=== PATIENT | male | born 1995 | race Caucasian/White ===

== ENCOUNTER → 2016-12-08 | Emergency (ER) | payer SELFPAY ==
[~2016-12-08] MED LIST: DEXAMETHASONE 4 MG TABLET (FP) PO ONE; DEXAMETHASONE SOD PHOSPHATE 10 MG/1 ML VIAL ONE
--- NOTE | 2016-12-08 06:56 | PDOC ---
History of Present Illness - General Stated Complaint: ALLERGIES Time Seen by Provider: 12/08/16 06:55 History Source: Patient, Family Exam Limitations: No Limitations - History of Present Illness Initial Comments: 12/08/16 07:01 The patient is a 21-year-old male with a significant past medical history of seasonal ALLERGIES, who presents to the emergency department with several weeks of "itchy eyes," sneezing, "scratchy throat," dry cough and runny nose. He states that he has had these symptoms every year for the past several years, and has never seen an sales support advisor. He denies fever, chills, sweats. He denies wheeze, dyspnea. He denies rash. He has taken occasional Claritin, but not on a daily basis. Past History - Past Medical History Allergies/Adverse Reactions: Allergies Allergy/AdvReac Type Severity Reaction Status Date / Time No Known Allergies Allergy Verified 12/08/16 06:57 Home Medications: Ambulatory Orders Fluticasone Prop 0.05% Nasal [Flonase] 1 - 2 spray NS DAILY #1 spray.pump Loratadine [Claritin -] 10 mg PO DAILY #30 tablet 12/08/16 Review of Systems - Review of Systems Comments:: 12/08/16 07:03 CONSTITUTIONAL: Absent: fever, chills, diaphoresis, generalized weakness, malaise, loss of appetite HEENT: Present: See history of present illness Absent: throat pain, throat swelling, difficulty swallowing, mouth swelling, ear pain, eye pain, visual Changes CARDIOVASCULAR: Absent: chest pain, loss of consciousness, palpitations, irregular heart rate, peripheral edema RESPIRATORY: Present: See history of present illness Absent: shortness of breath, dyspnea with exertion, orthopnea, wheezing, stridor , hemoptysis GASTROINTESTINAL: Absent: abdominal pain, abdominal distension, nausea, vomiting, diarrhea, constipation, melena, hematochezia GENITOURINARY: Absent: dysuria, frequency, urgency, hesitancy, hematuria, flank pain, genital pain MUSCULOSKELETAL: Absent: myalgia, arthralgia, joint swelling SKIN: Absent: rash, itching, pallor HEMATOLOGIC/IMMUNOLOGIC: Absent: easy bleeding, easy bruising, lymphadenopathy, frequent infections ENDOCRINE: Absent: unexplained weight gain, unexplained weight loss, heat intolerance, cold intolerance NEUROLOGIC: Absent: headache, focal weakness or paresthesias, dizziness, unsteady gait, seizure, mental status changes, bladder or bowel incontinence PSYCHIATRIC: Absent: anxiety, depression, suicidal or homicidal ideation, hallucinations. *Physical Exam - Physical Exam Comments: 12/08/16 07:03 GENERAL: Well developed, well nourished. Awake and alert. No acute distress. HEENT: Mild bilateral conjunctival injection. Normocephalic, atraumatic. PERRLA, EOMI. No conjunctival pallor. Sclera are non- icteric. Moist mucous membranes. Oropharynx is clear. NECK: Supple. Full ROM. No JVD. Carotid pulses 2+ and symmetric, without bruits. No thyromegaly. No lymphadenopathy. CARDIOVASCULAR: Regular rate and rhythm. No murmurs, rubs, or gallops. Distal pulses are 2+ and symmetric. PULMONARY: No evidence of respiratory distress. Lungs clear to auscultation bilaterally. No wheezing, rales or rhonchi. ABDOMINAL: Soft. Non-tender. Non-distended. No rebound or guarding. No organomegaly. Normoactive bowel sounds. MUSCULOSKELETAL Normal range of motion at all joints. No bony deformities or tenderness. No CVA tenderness. EXTREMITIES: No cyanosis. No clubbing. No edema. No calf tenderness. SKIN: Warm and dry. Normal capillary refill. No rashes. No jaundice. NEUROLOGICAL: Alert, awake, appropriate. Cranial nerves 2-12 intact. No deficits to light touch and temperature in face, upper extremities and lower extremities. No motor deficits in the in face, upper extremities and lower extremities. Normoreflexic in the upper and lower extremities. Normal speech. Toes are down- going bilaterally. Gait is normal without ataxia. PSYCHIATRIC: Cooperative. Good eye contact. Appropriate mood and affect. Medical Decision Making - Medical Decision Making 12/08/16 07:03 The patient is well-appearing and in no acute distress His clinical presentation is consistent with seasonal ALLERGIC rhinitis Clinical impression: Seasonal ALLERGIC rhinitis I discussed the physical exam findings, ancillary test results and final diagnoses with the patient. I answered all of the patient's questions. The patient was satisfied with the care received and felt comfortable with the discharge plan and treatment plan. The patient will call their primary care physician within 24 hours to arrange follow-up and will return to the Emergency Department with any new, persistent or worsening symptoms. *DC/Admit/Observation/Transfer Diagnosis at time of Disposition: Seasonal rhinitis - Discharge Dispostion Disposition: HOME Condition at time of disposition: Stable - Prescriptions Prescriptions: Loratadine [Claritin -] 10 mg PO DAILY #30 tablet Fluticasone Prop 0.05% Nasal [Flonase] 1 - 2 spray NS DAILY #1 spray.pump - Referrals Referrals: Seb Trivedi MD [Staff Physician] - Call tomorrow - Patient Instructions Printed Discharge Instructions: Allergic Rhinitis Additional Instructions: Return to the emergency department immediately with ANY new, persistent or worsening symptoms. You MUST call and follow up with your doctor tomorrow. Please make sure your doctor reviews the results of your emergency department evaluation. - Post Discharge Activity Work/School Note: Back to Work
[2016-12-08 06:59] VITALS: BP 124/74; PULSE 75; TEMP 98.2
== END | disposition home or self-care (01) ==
LOC: JER 06:40
DX: J30.2 Other seasonal allergic rhinitis (principal)
CPT/HCPCS: 99281-25

== ENCOUNTER 2017-05-25 18:07 | Emergency (ER) | payer OTHER ==
[2017-05-25 18:22] VITALS: BP 128/77; PULSE 91; TEMP 99.1; BMI 27.4
--- NOTE | 2017-05-25 19:40 | PDOC ---
History of Present Illness - General Chief Complaint: Headache Stated Complaint: HEADACHE Time Seen by Provider: 05/25/17 18:52 History Source: Patient Exam Limitations: No Limitations - History of Present Illness Initial Comments: 05/25/17 19:28 22 yr male with c/o headache for a few months. Pt states he has had them before , frontal radiates to the top of head. no head injury no fever no sick contacts. Pt states she used to wear eyeglasses as a child and teen however he has no glasses now, has not had eyes examined. Severity: Yes: mild Past History - Past Medical History Allergies/Adverse Reactions: Allergies Allergy/AdvReac Type Severity Reaction Status Date / Time No Known Allergies Allergy Verified 05/25/17 18:19 Home Medications: Ambulatory Orders NK [No Known Home Medication] 05/25/17 Other medical history: DENIES. - Surgical History Abdominal Surgery: Yes (TESTICULAR) - Suicide/Smoking/Psychosocial Hx Smoking History: Never smoked Have you smoked in the past 12 months: No Hx Alcohol Use: No Drug/Substance Use Hx: No Neuro Specific PMHX - Complaint Specific PMHX Glaucoma: No Herniated Disk: No Laminectomy: No Migraine: No Multiple Sclerosis: No Neuropathy: No TIA: No Review of Systems - Review of Systems Able to Perform ROS?: Yes Is the patient limited Latvian proficient: Yes Constitutional: No: Symptoms Reported HEENTM: No: Symptoms Reported Respiratory: No: Symptoms reported Cardiac (ROS): No: Symptoms Reported ABD/GI: No: Symptoms Reported : No: Symptoms Reported Musculoskeletal: No: Symptoms Reported Integumentary: No: Symptoms Reported Neurological: Yes: Symptoms reported, Headache *Physical Exam - Vital Signs Last Vital Signs Temp Pulse Resp BP Pulse Ox 99.1 F 91 H 19 128/77 97 05/25/17 18:19 05/25/17 18:19 05/25/17 18:19 05/25/17 18:19 05/25/17 18:19 - Physical Exam General Appearance: Yes: Nourished, Appropriately Dressed HEENT: positive: EOMI, NERISSA, Normal ENT Inspection, TMs Normal, Pharynx Normal Neck: positive: Supple. negative: Tender Respiratory/Chest: positive: Lungs Clear, Normal Breath Sounds. negative: Chest Tender Cardiovascular: positive: Regular Rhythm, Regular Rate Gastrointestinal/Abdominal: positive: Normal Bowel Sounds, Soft Musculoskeletal: positive: Normal Inspection Extremity: positive: Normal Capillary Refill, Normal Inspection, Normal Range of Motion Integumentary: positive: Normal Color, Dry, Warm Neurologic: positive: caster operator II-XII NML intact, Fully Oriented, Alert, Normal Mood/ Affect, Normal Response, Motor Strength 5/5, Other (steady gait ). 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 stable vitals no acute distress ambulatory steady gait 05/25/17 19:52 *DC/Admit/Observation/Transfer Diagnosis at time of Disposition: Headache Qualifiers: Headache type: tension-type Headache chronicity pattern: acute headache Intractability: not intractable Qualified Code(s): G44.209 - Tension-type headache, unspecified, not intractable; G44.209 - Tension-type headache, unspecified, not intractable - Discharge Dispostion Disposition: HOME Condition at time of disposition: Improved - Referrals Referrals: Noah Mcgregor MD [Staff Physician] - - Patient Instructions Additional Instructions: follow up with the neurologist for further evaluation if your headaches continue also get your eyes checked by an technical laboratory asst take Excedrin migraine as directed (over the counter) avoid any texting, video games, if your headache continues
== END 2017-05-25 19:55 | disposition home or self-care (01) ==
LOC: JERFT 18:07
DX: G44.209 Tension-type headache, unspecified, not intractable (principal)
CPT/HCPCS: 70450-TC; 99281-25

== ENCOUNTER 2017-09-18 18:33 | Emergency (ER) | payer OTHER ==
[2017-09-18 18:41] VITALS: BP 138/80; PULSE 76; TEMP 97.5; BMI 28.1
--- NOTE | 2017-09-18 19:49 | PDOC ---
History of Present Illness - General Chief Complaint: Pain, Acute Stated Complaint: STOMACH PAIN/ FATIGUE Time Seen by Provider: 09/18/17 19:23 History Source: Patient - History of Present Illness Initial Comments: 09/18/17 20:46 22 year old male with epigastric pain, burning in nature with occasional belching x 2 weeks. patient reports eating "spicy foods " lately. + nausea denies vomiting, diarrhea, constipation, lower abdominal pain, testicular painb / urinary symptoms. , PmHX: undescended testis repair as an infant Past History - Past Medical History Allergies/Adverse Reactions: Allergies Allergy/AdvReac Type Severity Reaction Status Date / Time No Known Allergies Allergy Verified 09/18/17 18:42 Home Medications: Ambulatory Orders Famotidine [Pepcid] 40 mg PO DAILY #14 tablet 09/18/17 Mag Hydrox/Al Hydrox/Simeth [Mylanta Suspension -] 30 ml PO Q6H PRN #1 bottle COPD: No Other medical history: Patient denies medical hx - Surgical History Abdominal Surgery: Yes (TESTICULAR) - Suicide/Smoking/Psychosocial Hx Smoking History: Never smoked Have you smoked in the past 12 months: No Hx Alcohol Use: No Drug/Substance Use Hx: No Review of Systems - Review of Systems Able to Perform ROS?: Yes Is the patient limited Angolan proficient: No Constitutional: No: Symptoms Reported, See HPI, Chills, Diaphoresis, Fever, Loss of Appetite, Malaise, Night Sweats, Weakness, Weight Stable, Unintentional Wgt. Loss, Unexplained wgt Loss, Other HEENTM: No: Symptoms Reported, See HPI, Eye Pain, Blurred Vision, Tearing, Recent change in vision, Double Vision, Cataracts, Ear Pain, Ocular Prothesis, Ear Discharge, Nose Pain, Nose Congestion, Tinnitus, Nose Bleeding, Hearing Loss , Throat Pain, Throat Swelling, Mouth Pain, Dental Problems, Difficulty Swallowing, Mouth Swelling, Other ABD/GI: Yes: Nausea, Abdominal cramping (epigastric). No: Symptoms Reported, See HPI, Abdominal Distended, Abd. Pain w/ defecation, Blood Streaked Bowels, Constipated, Diarrhea, Difficulty Swallowing, Poor Appetite, Poor Fluid Intake, Rectal Bleeding, Vomiting, Indigestion, Tarry Stools, Other : No: Symptoms Reported, See HPI, Burning, Dysuria, Discharge, Frequency, Flank Pain, Hematuria, Incontinence, Pain, Urgency, Testicular Mass, Testicular Swelling, Lesions, Testicular Pain, Other Neurological: No: Symptoms reported, See HPI, Headache, Numbness, Paresthesia, Pre-Existing Deficit, Seizure, Tingling, Tremors, Weakness, Unsteady Gait, Ataxia, Dizziness, Other *Physical Exam - Vital Signs Last Vital Signs Temp Pulse Resp BP Pulse Ox 97.5 F L 76 18 138/80 96 09/18/17 18:39 09/18/17 18:39 09/18/17 18:39 09/18/17 18:39 09/18/17 18:39 - Physical Exam General Appearance: Yes: Appropriately Dressed Respiratory/Chest: positive: Lungs Clear, Normal Breath Sounds Cardiovascular: positive: Regular Rhythm, Regular Rate Gastrointestinal/Abdominal: positive: Normal Bowel Sounds, Soft Musculoskeletal: positive: Normal Inspection Extremity: positive: Normal Capillary Refill, Normal Inspection, Normal Range of Motion Integumentary: positive: Normal Color, Dry, Warm Neurologic: positive: Fully Oriented, Alert, Normal Mood/Affect ED Treatment Course - LABORATORY CBC & Chemistry Diagram: 09/18/17 20:00 09/18/17 20:00 Progress Note - Progress Note Progress Note: A: Gastritis; GERD P: pepcid; zofran cbc cmp ua IVF Medical Decision Making - Medical Decision Making 09/18/17 21:29 Patient reports feeling better.likely gastritis. will d/c home with pepcid and maalox prn. dietary modifications discussed with patient. *DC/Admit/Observation/Transfer Diagnosis at time of Disposition: Gastroesophageal reflux Qualifiers: Esophagitis presence: without esophagitis Qualified Code(s): K21.9 - Gastro- esophageal reflux disease without esophagitis Gastritis Qualifiers: Gastritis type: other gastritis Chronicity: acute Gastritis bleeding: without bleeding Qualified Code(s): K29.00 - Acute gastritis without bleeding - Discharge Dispostion Disposition: HOME - Prescriptions Prescriptions: Famotidine [Pepcid] 40 mg PO DAILY #14 tablet Mag Hydrox/Al Hydrox/Simeth [Mylanta Suspension -] 30 ml PO Q6H PRN #1 bottle PRN Reason: Dyspepsia - Referrals Referrals: Poncho Brown MD [Staff Physician] - 2 Days - Patient Instructions Printed Discharge Instructions: [place] Diet Additional Instructions: start a [place] diet. avoid spicy food. take pepcid and maalox as prescribed. follow up with your doctor as soon as possible. - Post Discharge Activity
[2017-09-18] MEDS ORDERED: ONDANSETRON 4 MG/2 ML VIAL ONE (19:54)
[2017-09-18] MEDS ORDERED: ONDANSETRON 4 MG/2 ML VIAL IVPUSH ONE (20:00)
[2017-09-18] MEDS ORDERED: FAMOTIDINE 20 MG/50 ML IVPB 20 MG/50 ML MG IVPB ONE ×2 (20:00→20:04)
[2017-09-18 20:11] LABS: EOS % 3.8 % (0-4.5); HEMATOCRIT 46.6 % (35.4-49); HEMOGLOBIN 15.8 GM/dL (11.7-16.9); LYMPH % 25.1 % (8-40); MCH 28.8 pg (25.7-33.7); MEAN CELL VOLUME 84.8 fl (80-96); MEAN PLT VOLUME 7.6 fl (7.5-11.1); MONO % 9.4 % (3.8-10.2); NEUT % 60.7 % (42.8-82.8); PLATELET COUNT 233 K/MM3 (134-434); RBC 5.49 M/mm3 (4.00-5.60); RDW 13.4 % (11.9-15.9); WHITE BLOOD COUNT 9.3 K/mm3 (4.0-10.0)
[2017-09-18 20:33] LABS: ALBUMIN 4.5 g/dl (3.4-5.0); ALK PHOS 84 U/L (45-117); ANION GAP 3 (8-16); BILIRUBIN,TOTAL 0.7 mg/dL (0.2-1.0); BLOOD UREA NITROGEN 15 mg/dL (7-18); CALCIUM 8.5 mg/dL (8.5-10.1); CHLORIDE 106 mmol/L (98-107); CO2 30 mmol/L (21-32); GLUCOSE,RANDOM 85 mg/dL (74-106); LIPASE 197 U/L (73-393); POTASSIUM 3.8 mmol/L (3.5-5.1); SGOT/AST 21 U/L (15-37); SGPT/ALT 32 U/L (12-78); SODIUM 139 mmol/L (136-145); TOT PROT 7.5 g/dl (6.4-8.2)
[2017-09-18 21:02] LABS: URINE APPEARANCE CLEAR; URINE BILIRUBIN NEGATIVE (NEGATIVE); URINE BLOOD NEGATIVE (NEGATIVE); URINE COLOR LTYELLOW; URINE GLUCOSE (UA) NEGATIVE (NEGATIVE); URINE KETONE NEGATIVE (NEGATIVE); URINE LEUK ESTERASE NEGATIVE (NEGATIVE); URINE NITRITE NEGATIVE (NEGATIVE); URINE PROTEIN NEGATIVE (NEGATIVE); URINE UROBILINOGEN NEGATIVE mg/dL (0.2-1.0)
== END 2017-09-18 21:45 | disposition home or self-care (01) ==
LOC: JER 18:33
PROC: 3E033GC Introduction of Other Therapeutic Substance into Peripheral Vein, Percutaneous Approach (ICD-10-PCS; principal; 2017-09-18)
PROC: 3E033GC Introduction of Other Therapeutic Substance into Peripheral Vein, Percutaneous Approach (ICD-10-PCS; 2017-09-18)
DX: K21.9 Gastro-esophageal reflux disease without esophagitis (principal); K29.60 Other gastritis without bleeding
CPT/HCPCS: 36415; 80053; 81003; 83690; 85025; 99282-25

== ENCOUNTER 2020-03-04 17:57 | Emergency (ER) | payer OTHER ==
--- NOTE | 2020-03-04 18:16 | PDOC ---
History of Present Illness - General History Source: Patient Exam Limitations: No Limitations - History of Present Illness Initial Comments: 03/04/20 18:15 24-year-old male no significant past medical history requesting COVID test via virtual visit for loss of smell and taste. Patient denies any other symptoms at this time pt otherwise denies: fevers, chills, syncope, lightheadedness, dizziness, headaches, neck pain, chest pain, shortness of breath, palpitations, back pain, abdominal pain, nausea, vomiting, diarrhea, constipation. Past History - Medical History Allergies/Adverse Reactions: Allergies Allergy/AdvReac Type Severity Reaction Status Date / Time No Known Allergies Allergy Verified 09/18/17 18:42 Home Medications: Ambulatory Orders Famotidine [Pepcid] 40 mg PO DAILY #14 tablet 09/18/17 Mag Hydrox/Al Hydrox/Simeth [Mylanta Suspension -] 30 ml PO Q6H PRN #1 bottle 09/18/17 COPD: No - Surgical History Abdominal Surgery: Yes (TESTICULAR) - Psycho-Social/Smoking History Smoking History: Never smoked Have you smoked in the past 12 months: No *Physical Exam - Physical Exam 03/04/20 18:15 Unable to assess secondary to backline not allowing video chat PE deferred at this time Medical Decision Making - Medical Decision Making 03/04/20 18:15 COVID testing ordered for patient patient to proceed to [facility] and directions and instructions for COVID testing sent Strict return precautions given to patient as well as reasons including signs symptoms to come to the ED for further treatment and assessment Patient to proceed to [facility] Monday for [facility] testing instructed that results were given within 24 to 48 hours and patient will be called with test results. Discharge - Discharge Information Problems reviewed: Yes Clinical Impression/Diagnosis: Counseled about COVID-19 virus infection - Follow up/Referral Referrals: Perfecto Smith MD [Primary Care Provider] - - Patient Discharge Instructions - Post Discharge Activity
== END 2020-03-04 18:17 | disposition home or self-care (01) ==
LOC: JVIRT 17:57
DX: Z11.59 Encounter for screening for other viral diseases (principal)
CPT/HCPCS: Q3014-GT; U0003